=== PATIENT | female | born 1975 | race Caucasian/White ===

== ENCOUNTER → 2017-02-22 | Outpatient (CLI) | payer BC ==
--- NOTE | ~2017-02-22 | PUL ---
PATIENT'S NAME: DOROTA GOOD [facility] AGE: 41 Y [address] ROOM: [place] [address] LOCATION: [facility] ADMIT DATE: 02/22/2017 Pulmonary DISCHARGE DATE: FAMILY PHYSICIAN: RE POPE MD ATTENDING PHYSICIAN: Romi Schmidt NAME OF PROCEDURE: Spirometry DATE OF PROCEDURE: February 22, 2017 TECH: [place]ri[place], [employer] REASON FOR EXAM: Shortness of breath RESULTS: 1. Spirometry does not demonstrate airflow obstruction and there is no change post bronchodilator. 2. Lung volumes are normal. 3. Diffusing capacity is mildly reduced. MD KASHMIR BOWEN/ /[id number] dtt: 03/14/17 0825 , Kris Stanton dtd: 02/23/17 0915
== END | disposition disaster alternative care site (69) ==
LOC: GRTH 08:40
DX: R06.02 Shortness of breath (principal)

== ENCOUNTER 2017-06-05 19:53 | Emergency (ER) | payer BC ==
--- NOTE | ~2017-06-05 | ER ---
PATIENT'S NAME: DOROTA GOOD [facility] AGE: 42 Y [address] ROOM: [place] [address] LOCATION: [facility] ADMIT DATE: 06/05/2017 ER/Outpatient Report DISCHARGE DATE: 06/05/2017 FAMILY PHYSICIAN: Darron Holman MD ATTENDING PHYSICIAN: Alvino Wolfe Time of Arrival: 1955. Time of Exam: 1957. CHIEF COMPLAINT: Back pain, difficulty voiding. HISTORY OF PRESENT ILLNESS: The patient states 06/03/2017, she began having back pain, did talk to provider while she was working at the [employer]. They did write for some Flomax and [place], which she has been taking, but the pain just seemed a lot worse tonight. She has bilateral flank pain with radiating down to the right side. She has been nauseated, but no vomiting. Having urinary frequency with small amounts. A lot of pain with urination. Denies feeling feverish or chilled. Had a normal bowel movement yesterday. ALLERGIES: NO KNOWN ALLERGIES. CURRENT MEDICATIONS: On the chart and reviewed by me. PAST MEDICAL HISTORY: Kidney stones. Migraine headaches. PAST SURGERIES: Hiatal hernia. She did have a heart catheter years ago, which was all negative. SOCIAL HISTORY: Smokes half pack per day. Drinks alcohol on a rare occasion. Denies use of drugs. REVIEW OF SYSTEMS: All negative other than those mentioned in the HPI. PHYSICAL EXAMINATION: VITAL SIGNS: She weighs 82.1 kg. Blood pressure was 103/57, pulse of 108, respirations 20, temperature of 98 tympanic, O2 saturation was 95% on room air. PATIENT'S NAME: DOROTA GOOD [facility] AGE: 42 Y [address] ROOM: [place] [address] LOCATION: [facility] ADMIT DATE: 06/05/2017 ER/Outpatient Report DISCHARGE DATE: 06/05/2017 FAMILY PHYSICIAN: Darron Holman MD ATTENDING PHYSICIAN: Alvino Wolfe GENERAL: She is awake, alert, and oriented x4. SKIN: [place], warm, and dry. RESPIRATIONS: Even and nonlabored. Lung sounds are clear throughout. HEART: Regular rate and rhythm. ABDOMEN: Soft, nondistended. Bowel sounds are present. She does have tenderness in bilateral flank area. EMERGENCY ROOM COURSE: Saline lock was initiated. Fluids of normal saline were started at a wide- open rate. She was given Zofran 4 mg IV and Toradol 30 mg IV. LABORATORY DATA AND X-RAYS: Lab work was drawn. CBC is within normal limits. Chem panel is within normal limits. Clean-catch UA showed 25 leukocytes, 150 of blood. Micro; white cells was 0-2 with rare bacteria. She does have calcium oxalate crystals. Urine was negative. CT scan stone protocol was completed. Radiologist reports she has a nonobstructing 3 mm calculus of the right kidney lower pole. No hydronephrosis. Otherwise normal CT. IMPRESSION: Renal calculi. PLAN: Home, rest, fluids. Did give her a prescription for more than [place] and wrote her a note to dismiss her from work. If her symptoms do not improve in the next 2 to 3 days, she is to follow up with a urologist. She verbalized understanding. ALEJANDRA MONGE APRN FOR MD [facility]/naty /[id number] d: 06/06/17 0040 t: 06/07/17 1609, OUTPATIENT REPORT
[2017-06-05 20:19] LABS: BASOPHIL # 0.1 K/uL (0.0-0.2); BASOPHIL % 0.7 %; EOSINOPHIL # 0.3 K/uL (0.0-0.5); EOSINOPHIL % 2.4 %; HEMATOCRIT 40.2 % (33.0-46.0); HEMOGLOBIN 13.9 g/dL (10.0-15.0); IMMATURE GRANULOCYTE % 0.2 %; LYMPHOCYTE # 2.3 K/uL (0.8-4.0); LYMPHOCYTE % 22.2 %; MCH 32.8 pg (27.0-34.0); MCHC 34.6 gm/dL (32.0-36.5); MCV 94.8 fl (83.0-98.0); MONOCYTE # 1.1 K/uL (0.0-1.0); MONOCYTE % 10.4 %; MPV 10.8 fl (9.4-12.4); NEUTROPHIL # (ANC) 6.5 K/uL (1.8-7.8); NEUTROPHIL % 64.1 %; NRBC % 0 /100WBC (0-0.00); PLATELET COUNT 285 K/uL (150-450); RBC 4.24 M/uL (3.50-5.50); RDW-CV 13.1 % (11.9-14.6); WBC 10.2 K/uL (4.0-11.0)
[2017-06-05 20:22] LABS: BILIRUBIN URINE NEGATIVE (NEGATIVE); BLOOD URINE 150 /UL (NEGATIVE); COLOR URINE YELLOW (YELLOW); GLUCOSE URINE NEGATIVE (NEGATIVE); KETONE URINE NEGATIVE (NEGATIVE); LEUKOCYTES URINE 25 /UL (NEGATIVE); NITRITE URINE NEGATIVE (NEGATIVE); PROTEIN URINE 15 mg/dL (NEGATIVE); SPEC GRAVITY URINE 1.025 (1.003-1.035); TURBIDITY URINE CLEAR (CLEAR); UROBILINOGEN URINE NORMAL (NORMAL)
[2017-06-05 20:35] LABS: ALBUMIN 3.2 gm/dL (3.5-5.0); ALK PHOS 103 IU/L (33-138); ALT 24 IU/L (12-78); ANION GAP 10.7 (10.0-19.0); AST 17 IU/L (10-40); BLOOD UREA NITROGEN 12 mg/dL (6-24); CALCIUM 8.4 mg/dL (8.5-10.5); CHLORIDE 108 mMol/L (96-110); CO2 25 mMol/L (22-32); CREATININE 0.7 mg/dL (0.5-1.1); POTASSIUM 3.7 mMol/L (3.7-5.1); SODIUM 140 mMol/L (135-145); TOTAL BILIRUBIN 0.2 mg/dL (0.0-1.5); TOTAL PROTEIN 6.4 g/dL (6.0-8.4)
[2017-06-05 20:45] LABS: BACTERIA URINE RARE (NEGATIVE); CRYSTALS URINE CALCIUM OXALATE (NEGATIVE); MUCUS URINE 2+ (NEGATIVE); WBC URINE 0-2 #/HPF (NEGATIVE)
== END 2017-06-05 21:32 | disposition disaster alternative care site (69) ==
LOC: GMED 19:53
PROVIDERS: Emergency Medicine
DX: N20.0 Calculus of kidney (principal); F17.210 Nicotine dependence, cigarettes, uncomplicated; G43.909 Migraine, unspecified, not intractable, without status migrainosus; Z98.890 Other specified postprocedural states; Z79.899 Other long term (current) drug therapy
CPT/HCPCS: J1885; J2405; J7030